=== PATIENT | female | born 1975 | race Caucasian/White ===

== ENCOUNTER 2021-01-01 09:58 | Emergency (ER) | payer BC, OTHER ==
[~2021-01-01] VITALS: Ht 152.4 cm; Wt 78.0 kg
[2021-01-01 11:01] LABS: BASOPHILS % 0.5 % (0.0-2.0); EOSINOPHILS % 2.7 % (0.0-5.0); HEMATOCRIT. 36.6 % (36.0-48.0); HEMOGLOBIN. 12.3 g/dL (12.0-16.0); LYMPHOCYTES % 20.3 % (20.0-50.0); MEAN CORPUSCULAR HEMOGLOBIN 30.5 pg (28.0-32.0); MEAN CORPUSCULAR VOLUME 90.5 fL (81.0-99.0); MEAN PLATELET VOLUME 8.8 fl (7.4-10.4); MONOCYTES % 7.4 % (2.0-8.0); NEUTROPHILS % 69.1 % (40.0-76.0); PLATELET 265 x1000/uL (130-400); RED BLOOD CELL COUNT 4.05 mill/uL (4.2-5.4); RED CELL DISTRIBUTION WIDTH 14.2 % (11.6-14.6)
[2021-01-01 11:08] LABS: CHLORIDE 106 mEq/L (98-107)
[2021-01-01 11:31] LABS: B-HCG QUANTITATIVE 8158 mIU/mL (<3)
[2021-01-01 12:18] VITALS: BP 158/90
== END 2021-01-01 12:42 | disposition home or self-care (01) ==
LOC: ER 10:25
DX: O20.0 Threatened abortion (principal); O26.891 Other specified pregnancy related conditions, first trimester; I10 Essential (primary) hypertension; Z3A.01 Less than 8 weeks gestation of pregnancy; Z90.49 Acquired absence of other specified parts of digestive tract
CPT/HCPCS: 36415; 76801; 80053; 81025; 84702; 85025; 86850; 86900; 93005; 99285

== ENCOUNTER 2021-03-30 16:19 | Emergency (ER) | payer BC ==
[~2021-03-30] VITALS: Ht 157.5 cm; Wt 80.0 kg
[2021-03-30] MEDS ORDERED: ACETAMINOPHEN 325MG TABLET PO ONE (17:15)
[2021-03-30] MEDS ORDERED: IBUPROFEN 400MG TABLET PO ONE (17:15)
[2021-03-30 17:30] VITALS: BP 144/87
== END 2021-03-30 17:35 | disposition home or self-care (01) ==
LOC: ER 16:19
DX: M54.2 Cervicalgia (principal); I10 Essential (primary) hypertension; Z90.49 Acquired absence of other specified parts of digestive tract
CPT/HCPCS: 99283; Z7610

== ENCOUNTER → 2021-06-19 | Outpatient (CLI) | payer BC | END | disposition home or self-care (01) | LOC: LAB 06:51 | PROVIDERS: ATTEND Internal Medicine | DX: E55.9 Vitamin D deficiency, unspecified (principal) | CPT/HCPCS: 82306 ==

== ENCOUNTER → 2021-08-17 | Outpatient (CLI) | payer BC ==
[2021-08-17 07:46] LABS: CHLORIDE 106 mEq/L (98-107)
[2021-08-17 07:53] LABS: BASOPHILS % 0.6 % (0.0-2.0); EOSINOPHILS % 2.6 % (0.0-5.0); HEMATOCRIT. 37.7 % (36.0-48.0); HEMOGLOBIN. 12.5 g/dL (12.0-16.0); LDL CHOLESTEROL 101 mg/dL (5-100); LYMPHOCYTES % 21.9 % (20.0-50.0); MEAN CORPUSCULAR HEMOGLOBIN 29.2 pg (28.0-32.0); MEAN CORPUSCULAR VOLUME 88.3 fL (81.0-99.0); MEAN PLATELET VOLUME 8.7 fl (7.4-10.4); MONOCYTES % 6.3 % (2.0-8.0); NEUTROPHILS % 68.6 % (40.0-76.0); PLATELET 314 x1000/uL (130-400); RED BLOOD CELL COUNT 4.27 mill/uL (4.2-5.4); RED CELL DISTRIBUTION WIDTH 13.8 % (11.6-14.6)
[2021-08-17 07:55] LABS: HDL CHOLESTEROL 35 mg/dL (40-59)
[2021-08-17 08:31] LABS: CLARITY URINE CLEAR (CLEAR); COLOR URINE YELLOW (YELLOW); KETONES URINE NEGATIVE (NEGATIVE); LEUKOCYTE ESTERASE URINE NEGATIVE (NEGATIVE); NITRITE URINE NEGATIVE (NEGATIVE); OCCULT BLOOD URINE NEGATIVE (NEGATIVE); PH URINE 6.5 (4.5-8.0); PROTEIN URINE NEGATIVE (NEGATIVE); SPECIFIC GRAVITY URINE 1.024 (1.005-1.030)
[2021-08-18 07:11] LABS: HIV SCREEN 4G Non Reactive (Non Reactive); VITAMIN D 25-OH 27.8 ng/mL (30.0-100.0)
== END | disposition home or self-care (01) ==
LOC: LAB 07:08
PROVIDERS: ATTEND Internal Medicine
DX: Z00.00 Encounter for general adult medical examination without abnormal findings (principal)
CPT/HCPCS: 36415; 80053; 80061; 81003; 82306; 83036; 84443; 85025; 86592; 87389

== ENCOUNTER → 2021-09-28 | Outpatient (CLI) | payer BC ==
[2021-09-28 07:18] LABS: CHLORIDE 109 mEq/L (98-107)
== END | disposition home or self-care (01) ==
LOC: LAB 06:43
PROVIDERS: ATTEND Internal Medicine
DX: I10 Essential (primary) hypertension (principal); E55.9 Vitamin D deficiency, unspecified
CPT/HCPCS: 36415; 80053; 82306

== ENCOUNTER → 2021-10-05 | Outpatient (CLI) | payer BC ==
[~2021-10-05] MED LIST: IOHEXOL-300 100 ML BOTTLE ONE
== END | disposition home or self-care (01) ==
LOC: CT 06:32
PROVIDERS: ATTEND Internal Medicine
DX: D25.9 Leiomyoma of uterus, unspecified (principal); J98.11 Atelectasis; K76.0 Fatty (change of) liver, not elsewhere classified
CPT/HCPCS: 74177; Q9967

== ENCOUNTER → 2021-11-21 | Outpatient (CLI) | payer BC | END | disposition home or self-care (01) | LOC: MAMMO 07:01 | PROVIDERS: ATTEND Internal Medicine | DX: Z12.31 Encounter for screening mammogram for malignant neoplasm of breast (principal); N64.89 Other specified disorders of breast | CPT/HCPCS: 77067 ==

== ENCOUNTER → 2021-11-23 | Outpatient (CLI) | payer BC ==
[2021-11-23 07:14] LABS: CHLORIDE 104 mEq/L (98-107)
== END | disposition home or self-care (01) ==
LOC: LAB 06:27
PROVIDERS: ATTEND Internal Medicine
DX: I10 Essential (primary) hypertension (principal); E78.5 Hyperlipidemia, unspecified
CPT/HCPCS: 36415; 80053; 82306

== ENCOUNTER 2023-02-06 22:51 | Emergency (ER) | payer BC ==
[~2023-02-06] VITALS: Ht 152.4 cm; Wt 75.8 kg
[2023-02-06 23:05] VITALS: BP 144/92
[2023-02-06 23:56] LABS: CLARITY URINE CLOUDY (CLEAR); COLOR URINE YELLOW (YELLOW); KETONES URINE 2+ (NEGATIVE); LEUKOCYTE ESTERASE URINE 2+ (NEGATIVE); NITRITE URINE NEGATIVE (NEGATIVE); OCCULT BLOOD URINE NEGATIVE (NEGATIVE); PROTEIN URINE NEGATIVE (NEGATIVE); UROBILINOGEN URINE 0.2 E.U./dL (0.2-1.0)
== END 2023-02-07 00:31 | disposition left against medical advice (07) ==
LOC: ER 22:51
DX: M79.89 Other specified soft tissue disorders (principal); Z53.21 Procedure and treatment not carried out due to patient leaving prior to being seen by health care provider
CPT/HCPCS: 81003; 99281

== ENCOUNTER → 2023-03-08 | Outpatient (CLI) | payer BC ==
[2023-03-08 06:55] LABS: CLARITY URINE CLEAR (CLEAR); COLOR URINE YELLOW (YELLOW); KETONES URINE NEGATIVE (NEGATIVE); LEUKOCYTE ESTERASE URINE NEGATIVE (NEGATIVE); NITRITE URINE NEGATIVE (NEGATIVE); OCCULT BLOOD URINE NEGATIVE (NEGATIVE); PH URINE 6.5 (4.5-8.0); PROTEIN URINE NEGATIVE (NEGATIVE); SPECIFIC GRAVITY URINE 1.017 (1.005-1.030)
[2023-03-08 07:08] LABS: BASOPHILS % 0.5 % (0.0-2.0); EOSINOPHILS % 2.8 % (0.0-5.0); HEMATOCRIT. 38.8 % (36.0-48.0); HEMOGLOBIN. 12.5 g/dL (12.0-16.0); LYMPHOCYTES % 17.6 % (20.0-50.0); MEAN CORPUSCULAR HEMOGLOBIN 28.2 pg (28.0-32.0); MEAN CORPUSCULAR VOLUME 87.5 fL (81.0-99.0); MEAN PLATELET VOLUME 8.4 fl (7.4-10.4); MONOCYTES % 5.3 % (2.0-8.0); NEUTROPHILS % 73.8 % (40.0-76.0); PLATELET 277 x1000/uL (130-400); RED BLOOD CELL COUNT 4.43 mill/uL (4.2-5.4); RED CELL DISTRIBUTION WIDTH 14.1 % (11.6-14.6)
[2023-03-08 07:13] LABS: CHLORIDE 105 mEq/L (98-107)
[2023-03-08 07:33] LABS: HDL CHOLESTEROL 25 mg/dL (40-59); LDL CHOLESTEROL 115 mg/dL (5-100)
== END | disposition home or self-care (01) ==
LOC: LAB 06:24
PROVIDERS: ATTEND Internal Medicine
DX: Z00.00 Encounter for general adult medical examination without abnormal findings (principal); Z13.1 Encounter for screening for diabetes mellitus; I10 Essential (primary) hypertension; E78.5 Hyperlipidemia, unspecified
CPT/HCPCS: 36415; 80053; 80061; 81003; 83036; 84443; 85025

== ENCOUNTER 2023-05-19 02:13 | Emergency (ER) | payer BC ==
[~2023-05-19] VITALS: Ht 152.4 cm; Wt 76.0 kg
[2023-05-19 02:19] VITALS: O2SAT 98
[2023-05-19 02:36] LABS: CLARITY URINE CLEAR (CLEAR); COLOR URINE YELLOW (YELLOW); GLUCOSE URINE NEGATIVE (NEGATIVE); KETONES URINE NEGATIVE (NEGATIVE); LEUKOCYTE ESTERASE URINE 1+ (NEGATIVE); NITRITE URINE NEGATIVE (NEGATIVE); OCCULT BLOOD URINE NEGATIVE (NEGATIVE); PH URINE 6.5 (4.5-8.0); PROTEIN URINE 1+ (NEGATIVE); SPECIFIC GRAVITY URINE 1.016 (1.005-1.030)
[2023-05-19 02:38] LABS: RBC URINE 0-2 /hpf (0-2); SQUAMOUS EPITHELIAL CELL URINE 1+ /lpf (RARE/1+); YEAST URINE NONE SEEN
[2023-05-19 02:57] LABS: BASOPHILS % 0.6 % (0.0-2.0); EOSINOPHILS % 3.6 % (0.0-5.0); HEMATOCRIT. 36.9 % (36.0-48.0); HEMOGLOBIN. 12.2 g/dL (12.0-16.0); LYMPHOCYTES % 18.7 % (20.0-50.0); MEAN CORPUSCULAR HEMOGLOBIN 28.4 pg (28.0-32.0); MEAN CORPUSCULAR HGB CONC 33.2 g/dL (31.0-37.0); MEAN CORPUSCULAR VOLUME 85.5 fL (81.0-99.0); MEAN PLATELET VOLUME 8.6 fl (7.4-10.4); MONOCYTES % 5.5 % (2.0-8.0); NEUTROPHILS % 71.6 % (40.0-76.0); PLATELET 317 x1000/uL (130-400); RED BLOOD CELL COUNT 4.31 mill/uL (4.2-5.4); RED CELL DISTRIBUTION WIDTH 14.7 % (11.6-14.6); WHITE BLOOD COUNT 11.6 x1000/uL (4.5-11.0)
[2023-05-19 03:03] LABS: CHLORIDE 103 mEq/L (98-107); INDEX HEMOLYSI 1 (1-3); INDEX ICTERIC 1 (1-4); INDEX LIPEMIC 1 (1-3); POTASSIUM 3.8 mEq/L (3.5-5.1); SODIUM 137 mEq/L (136-145)
[2023-05-19 03:08] LABS: BACTERIA URINE TRACE
[2023-05-19 03:13] LABS: ALANINE AMINOTRANSFERASE 26 IU/L (13-61); ALBUMIN 3.5 g/dL (3.4-5.0); ASPARTATE AMINOTRANSFERASE 10 IU/L (15-37); BILIRUBIN TOTAL 0.6 mg/dL (0.1-1.0); CALCIUM 8.4 mg/dL (8.5-10.1); CARBON DIOXIDE 28 mEq/L (21-32); CREATININE 0.6 mg/dL (0.6-1.3); GLUCOSE 118 mg/dL (70-105); PROTEIN TOTAL 7.4 g/dL (6.0-8.3); TROPONIN I HIGH SENSITIVITY 6 ng/L (<54); UREA NITROGEN BLOOD 6 mg/dL (7-21)
[2023-05-19] MEDS ORDERED: ONDANSETRON HCL 4MG/2ML INJ IV ONE (06:00)
[2023-05-19] MEDS ORDERED: SODIUM CHLORIDE 0.9% 1,000 ML IV ONE (06:00)
[2023-05-19] MEDS ORDERED: MORPHINE SULFATE 2 MG/ML CPJ (NOT FOR IM USE) IV ONE (06:00)
[2023-05-19 07:56] VITALS: BP 146/86; PULSE 52; RESP 17; TEMP 98.3
[2023-05-19] MEDS ORDERED: IBUP-1523 MT (09:49)
[2023-05-19] MEDS ORDERED: NITR-87 MT (09:49)
[2023-05-19] MEDS ORDERED: HYDR-4001 MT (09:49)
[2023-05-19] MEDS ORDERED: ONDA4TAB50 MT (09:49)
== END 2023-05-19 10:01 | disposition home or self-care (01) ==
LOC: ER 02:13
DX: K80.50 Calculus of bile duct without cholangitis or cholecystitis without obstruction (principal); N39.0 Urinary tract infection, site not specified; I10 Essential (primary) hypertension; Z90.49 Acquired absence of other specified parts of digestive tract; Z87.19 Personal history of other diseases of the digestive system
CPT/HCPCS: 80053; 81003; 81025; 83690; 85025; 84484; 36415; 76705; 93005; 96361; 96374; 96375; 99285; J2405; J2270; J7030; Z7610 ×3

== ENCOUNTER → 2025-03-26 | Outpatient (CLI) | payer BC ==
[~2025-03-26] MED LIST changes: +HYDR-4001 MT; +IBUP-1523 MT; -IOHEXOL-300 100 ML BOTTLE ONE; +NITR-87 MT; +ONDA4TAB50 MT
[2025-03-26 07:32] LABS: BASOPHILS % 0.8 % (0.0-2.0); EOSINOPHILS % 3.3 % (0.0-5.0); HEMATOCRIT. 37.5 % (36.0-48.0); HEMOGLOBIN. 12.4 g/dL (12.0-16.0); MEAN CORPUSCULAR HEMOGLOBIN 28.4 pg (28.0-32.0); MEAN CORPUSCULAR HGB CONC 33.1 g/dL (31.0-37.0); MEAN CORPUSCULAR VOLUME 85.6 fL (81.0-99.0); MEAN PLATELET VOLUME 8.9 fl (7.4-10.4); MONOCYTES % 6.5 % (2.0-8.0); NEUTROPHILS % 63.4 % (40.0-76.0); PLATELET 277 x1000/uL (130-400); RED BLOOD CELL COUNT 4.38 mill/uL (4.2-5.4); RED CELL DISTRIBUTION WIDTH 14.8 % (11.6-14.6); WHITE BLOOD COUNT 8.1 x1000/uL (4.5-11.0)
[2025-03-26 07:47] LABS: CALCIUM 8.6 mg/dL (8.7-10.4); CARBON DIOXIDE 30 mEq/L (21-32); CHLORIDE 102 mEq/L (98-107); POTASSIUM 4.1 mEq/L (3.5-5.1); SODIUM 138 mEq/L (136-145)
[2025-03-26 07:53] LABS: CREATININE 0.7 mg/dL (0.6-1.0); GLUCOSE 101 mg/dL (70-105); TRIGLYCERIDE 150 mg/dL (0-150); UREA NITROGEN BLOOD 10 mg/dL (9-23)
[2025-03-26 07:54] LABS: CHOLESTEROL 159 mg/dL (<200); LDL CHOLESTEROL 107 mg/dL (5-100)
[2025-03-26 07:55] LABS: HDL CHOLESTEROL 27 mg/dL (>65)
[2025-03-26 07:58] LABS: T4 FREE 1.16 ng/dL (0.89-1.76)
== END | disposition home or self-care (01) ==
LOC: LAB 07:09
DX: Z00.01 Encounter for general adult medical examination with abnormal findings (principal)
CPT/HCPCS: 36415; 80048; 80061; 83036; 84439; 84443; 85025

== ENCOUNTER 2025-08-13 10:44 | Emergency (ER) | payer BC ==
[~2025-08-13] VITALS: Ht 162.6 cm; Wt 78.0 kg
[2025-08-13 10:50] VITALS: O2SAT 100
[2025-08-13] MEDS: ONDANSETRON HCL 4MG/2ML INJ IV ONE (11:19)
[2025-08-13] MEDS: ACETAMINOPHEN 325MG TABLET PO ONE (11:19)
[2025-08-13] MEDS: SUCRALFATE 1G TABLET PO SCH (11:19)
[2025-08-13] MEDS: FAMOTIDINE 20MG/2ML VIAL IV ONE (11:19)
[2025-08-13] MEDS: MAGNESIUM/ALUMINUM HYDROXIDE/SIMETHICONE 30ML UDC PO ONE (11:19)
[2025-08-13 11:27] LABS: BASOPHILS % 0.6 % (0.0-2.0); EOSINOPHILS % 1.8 % (0.0-5.0); HEMATOCRIT. 40.7 % (36.0-48.0); HEMOGLOBIN. 13.5 g/dL (12.0-16.0); LYMPHOCYTES % 17.0 % (20.0-50.0); MEAN PLATELET VOLUME 8.9 fl (7.4-10.4); MONOCYTES % 4.6 % (2.0-8.0); NEUTROPHILS % 76.0 % (40.0-76.0); PLATELET 328 x1000/uL (130-400); RED BLOOD CELL COUNT 4.72 mill/uL (4.2-5.4); RED CELL DISTRIBUTION WIDTH 13.5 % (11.6-14.6)
[2025-08-13 11:44] LABS: CREATININE 0.6 mg/dL (0.6-1.0); HCG SCREEN NEGATIVE
[2025-08-13 11:45] LABS: UREA NITROGEN BLOOD 6 mg/dL (9-23)
[2025-08-13 11:46] LABS: ASPARTATE AMINOTRANSFERASE 23 IU/L (<34)
[2025-08-13 11:47] LABS: BILIRUBIN DIRECT 0.2 mg/dL (<=3.0); BILIRUBIN TOTAL 0.6 mg/dL (0.1-1.0); PROTEIN TOTAL 7.5 g/dL (6.0-8.3)
[2025-08-13] MEDS ORDERED: FAMO-134 MT (12:27)
[2025-08-13] MEDS ORDERED: ONDA-239 PO (12:27)
[2025-08-13 12:45] VITALS: BP 170/93; PULSE 60; RESP 11; TEMP 37; O2SAT 100
[2025-08-14] MEDS ORDERED: HYDR-4001 MT (08:36)
== END 2025-08-13 12:52 | disposition home or self-care (01) ==
LOC: ER 10:44
DX: R10.13 Epigastric pain (principal); K80.20 Calculus of gallbladder without cholecystitis without obstruction; I10 Essential (primary) hypertension; Z87.19 Personal history of other diseases of the digestive system; Z90.49 Acquired absence of other specified parts of digestive tract; Z79.899 Other long term (current) drug therapy
CPT/HCPCS: 99285; 96374; 76705; 96375; 80076; 80048; 84703; 83690; 85025; 36415; 93005; J1308; J2405

== ENCOUNTER 2025-08-13 23:18 | Inpatient (IN) | payer BC ==
[~2025-08-13] VITALS: Ht 172.7 cm; Wt 64.9 kg
[~2025-08-13 23:18] MED LIST changes: +FAMO-134 MT; +ONDA-239 PO
[2025-08-13 23:28] VITALS: O2SAT 99
[2025-08-14 00:06] LABS: BASOPHILS % 0.5 % (0.0-2.0); EOSINOPHILS % 1.5 % (0.0-5.0); HEMATOCRIT. 39.7 % (36.0-48.0); HEMOGLOBIN. 13.4 g/dL (12.0-16.0); LYMPHOCYTES % 12.2 % (20.0-50.0); MEAN PLATELET VOLUME 8.7 fl (7.4-10.4); MONOCYTES % 3.8 % (2.0-8.0); NEUTROPHILS % 82.0 % (40.0-76.0); PLATELET 321 x1000/uL (130-400); RED BLOOD CELL COUNT 4.64 mill/uL (4.2-5.4); RED CELL DISTRIBUTION WIDTH 13.8 % (11.6-14.6)
[2025-08-14 00:16] LABS: CREATININE 0.7 mg/dL (0.6-1.0); UREA NITROGEN BLOOD 6 mg/dL (9-23)
[2025-08-14 00:18] LABS: ASPARTATE AMINOTRANSFERASE 20 IU/L (<34); BILIRUBIN DIRECT 0.3 mg/dL (<=3.0); TROPONIN I HIGH SENSITIVITY 8 ng/L (3.0-34)
[2025-08-14 00:19] LABS: BILIRUBIN TOTAL 1.0 mg/dL (0.1-1.0); PROTEIN TOTAL 7.3 g/dL (6.0-8.3)
[2025-08-14 00:33] LABS: HCG SCREEN NEGATIVE
[2025-08-14] MEDS: KETOROLAC 15MG/ML VIAL IM ONE (02:43)
[2025-08-14 03:15] VITALS: BP 135/77; PULSE 62; RESP 16; TEMP 36.6404
[2025-08-14 04:00] VITALS: BP 135/77; PULSE 62; RESP 16; TEMP 36.6; O2SAT 95
[2025-08-14 04:09] LABS: CLARITY URINE CLEAR (CLEAR); COLOR URINE DARK YELLOW (YELLOW); GLUCOSE URINE NEGATIVE (NEGATIVE); PH URINE 6.5 (4.5-8.0); PROTEIN URINE 2+ (NEGATIVE); SPECIFIC GRAVITY URINE 1.018 (1.005-1.030)
[2025-08-14 04:10] LABS: KETONES URINE 1+ (NEGATIVE); LEUKOCYTE ESTERASE URINE NEGATIVE (NEGATIVE); NITRITE URINE NEGATIVE (NEGATIVE); OCCULT BLOOD URINE TRACE (NEGATIVE); UROBILINOGEN URINE 1.0 E.U./dL (0.2-1.0)
[2025-08-14] MEDS ORDERED: ONDANSETRON HCL 4MG/2ML INJ IV PRN (04:30)
[2025-08-14] MEDS ORDERED: HYDROCODONE/ACETAMINOPHEN 5/325MG TABLET PO PRN (04:30)
[2025-08-14 04:56] LABS: SQUAMOUS EPITHELIAL CELL URINE FEW /lpf (RARE/1+)
[2025-08-14 04:58] LABS: BACTERIA URINE NONE SEEN; WBC URINE 0-2 /hpf (0-2)
[2025-08-14 07:54] VITALS: BP 151/82; PULSE 56; RESP 17; TEMP 36.8; O2SAT 98
[2025-08-14 08:00] VITALS: BP 151/82; PULSE 56; RESP 18; TEMP 36.8; O2SAT 98
[2025-08-14] MEDS: LISINOPRIL 10MG TABLET PO SCH (08:26)
[2025-08-14] MEDS: PANTOPRAZOLE SODIUM 40 MG/VIAL IV SCH (08:26)
[2025-08-14] MEDS ORDERED: HYDR-4001 MT (08:36)
[2025-08-14 09:23] VITALS: BP 138/80; PULSE 65; RESP 18; TEMP 98.1
== END 2025-08-14 10:35 | disposition home or self-care (01) | DRG 446 ==
LOC: ER 23:18 → EDBEDREQTM 08-14 01:20 → EDBEDREQ 08-14 01:20 → EDBEDREQSVC 08-14 01:20 → ENRESERV 08-14 01:33 → 4WST 08-14 03:28
PROVIDERS: ADMIT Internal Medicine; ATTEND Internal Medicine
DX: K80.10 Calculus of gallbladder with chronic cholecystitis without obstruction (principal); D72.829 Elevated white blood cell count, unspecified; I10 Essential (primary) hypertension; K52.9 Noninfective gastroenteritis and colitis, unspecified; Z79.899 Other long term (current) drug therapy; Z90.49 Acquired absence of other specified parts of digestive tract
CPT/HCPCS: 36415; 74176; 80048; 80076; 81003; 83735; 84484; 84703; 85025; 99285; J1885; J2470

== ENCOUNTER 2025-09-20 07:39 | Emergency (ER) | payer BC ==
[~2025-09-20] VITALS: Ht 152.4 cm; Wt 76.0 kg
[2025-09-20 07:40] VITALS: O2SAT 98
[2025-09-20] MEDS ORDERED: VALA100044 MT (08:56)
[2025-09-20] MEDS: VALACYCLOVIR HCL 500MG TABLET PO STA (09:02)
[2025-09-20 09:06] VITALS: BP 185/91; PULSE 85; RESP 16; TEMP 36.7; O2SAT 98
== END 2025-09-20 09:07 | disposition home or self-care (01) ==
LOC: ER 07:39
DX: B00.1 Herpesviral vesicular dermatitis (principal); I10 Essential (primary) hypertension
CPT/HCPCS: 99283